=== PATIENT | female | born 1995 | race Caucasian/White ===

== ENCOUNTER 2017-03-07 06:09 | Emergency (ER) | payer OTHER ==
[~2017-03-07] VITALS: Ht 160 cm; Wt 54.5 kg
[~2017-03-07 06:09] MED LIST: GILDESS; K-DUR20 MEQ PO; PROZAC40 MG PO; ZOFRAN 4MG T4 MG/TAB PO
[2017-03-07 06:11] VITALS: TEMP 96.8
[2017-03-07 06:53] LABS: BASO % 0.3 % (0.0-2.0); EOS # 0.1 (0.0-0.7); EOS % 0.6 % (0-4.0); GRAN # 4.2 (1.4-6.5); GRAN % 44.7 % (42.2-75.2); HEMATOCRIT 38.3 % (37.0-47.0); HEMOGLOBIN 12.3 g/dl (12.5-16.0); LYMPH # 4.7 (1.2-3.4); LYMPH % 49.9 % (20.0-51.0); MEAN CELL VOLUME 89 fl (80.0-100.0); MEAN CORPUSCULAR HEMOGLOBIN 29 pg (27.0-31.0); MEAN CORPUSCULAR HGB CONC 32 g/dl (33.0-37.0); MEAN PLATELET VOLUME 9.2 fl (7.4-10.4); MONO # 0.3 (0.1-0.6); MONO % 3.4 % (1.7-9.3); PLATELET COUNT 255 K/mm3 (130-400); WHITE BLOOD COUNT 9.3 K/mm3 (4.8-10.8)
[2017-03-07 07:05] LABS: ADJUSTED CALCIUM 8.8 mg/dL (8.4-10.2); ALANINE AMINOTRANSFERASE 23 U/L (9-52); ALBUMIN 3.1 gm/dL (3.5-5.0); ALKALINE PHOSPHATASE 68 U/L (50-136); ANION GAP 7 mmol/L (7-16); BILIRUBIN,TOTAL 0.4 mg/dL (0.0-1.0); BLOOD UREA NITROGEN 15 mg/dL (7-17); CALCIUM 8.1 mg/dL (8.4-10.2); CARBON DIOXIDE 23 mmol/L (22-30); CHLORIDE 109 mmol/L (98-107); CREATININE, serum 0.87 mg/dL (0.52-1.25); GLUCOSE 197 mg/dL (74-106); LIPASE 217 U/L (23-300); POTASSIUM 3.2 mmol/L (3.4-5.0); SODIUM 139 mmol/L (137-145); TOTAL PROTEIN 5.6 gm/dL (6.4-8.2)
[2017-03-07 07:07] LABS: ACETAMINOPHEN < 10 ug/mL (10-30); ALCOHOL(ethanol),MEDICAL < 10 mg/dL; C-REACTIVE PROTEIN < 0.5 mg/dL (0.0-0.9); SALICYLATE < 1.0 mg/dL
[2017-03-07 07:12] LABS: TROPONIN-I < 0.012 ng/mL (0.000-0.034)
[2017-03-07 08:01] LABS: AMPHETAMINE URINE NEGATIVE; BARBITURATES URINE NEGATIVE; BENZODIAZEPINES URINE NEGATIVE; BUPRENORPHINE URINE NEGATIVE; METHADONE URINE NEGATIVE; OPIATES URINE NEGATIVE; OXYCODONE URINE NEGATIVE; PHENCYCLIDINE URINE NEGATIVE; PROPOXYPHENE URINE NEGATIVE; THC CANNABINOIDS URINE POSITIVE; TRICYCLIC ANTIDEPRESS URINE NEGATIVE
[2017-03-07] MEDS ORDERED: K-TAB20 PO (09:20)
[2017-03-07] MEDS ORDERED: PHENERGAN 25 TA25 MG PO (10:24)
[2017-03-07 10:35] VITALS: BP 105/69; PULSE 80
== END 2017-03-07 10:45 | disposition home or self-care (01) ==
LOC: COL.ER 06:09
PROVIDERS: Emergency Medicine
DX: I95.9 Hypotension, unspecified (principal); E87.6 Hypokalemia; R55 Syncope and collapse; F12.90 Cannabis use, unspecified, uncomplicated; Z98.818 Other dental procedure status
CPT/HCPCS: J2550; J3480; J7030